=== PATIENT | male | born 1975 | race Two or more races ===

== ENCOUNTER 2022-08-18 16:37 | Emergency (ER) | payer OTHER ==
[~2022-08-18] VITALS: Ht 162.6 cm; Wt 75.0 kg
[2022-08-18 17:00] VITALS: BP 146/91
== END 2022-08-18 17:20 | disposition home or self-care (01) ==
LOC: EMS 16:42
DX: S62.001A Unspecified fracture of navicular [scaphoid] bone of right wrist, initial encounter for closed fracture (principal); W18.09XA Striking against other object with subsequent fall, initial encounter; Y93.89 Activity, other specified; Y92.89 Other specified places as the place of occurrence of the external cause; Y99.8 Other external cause status
CPT/HCPCS: 99283